=== PATIENT | female | born 1990 | race Caucasian/White ===

== ENCOUNTER 2023-12-17 03:50 | Emergency (ER) | payer OTHER ==
[~2023-12-17] VITALS: Ht 162.6 cm; Wt 81.4 kg
[2023-12-17 03:56] VITALS: BP 113/70; PULSE 76; RESP 18; TEMP 97.8; O2SAT 97
[2023-12-17] MEDS ORDERED: ALUMINUM HYD/MAG/SIMETHICONE 30 ML UDC ONE ×2 (04:34→04:42)
[2023-12-17] MEDS ORDERED: DICYCLOMINE HCL LIQUID 10 MG/5 ML UDC ONE (04:35)
[2023-12-17] MEDS: DICYCLOMINE HCL LIQUID 20 MG, ALUMINUM HYD/MAG/SIMETHICONE 30 ML, LIDOCAINE VISCOUS 2% ... PO ONE (04:45)
[2023-12-17 05:41] LABS: ALBUMIN 3.6 g/dL (3.4-5.0); ANION GAP 11.3 (8-16); CARBON DIOXIDE 27.3 mmol/L (21-32); CREATININE 0.8 mg/dL (0.6-1.3); POTASSIUM 3.6 mmol/L (3.5-5.1); TOTAL BILIRUBIN 0.4 mg/dL (0.0-1.0); TOTAL PROTEIN, SERUM 7.6 g/dL (6.4-8.2)
[2023-12-17] MEDS ORDERED: MAG-27 PO (05:49)
[2023-12-17 05:55] VITALS: BP 113/70; PULSE 76; RESP 18; TEMP 97.8; O2SAT 97
== END 2023-12-17 05:55 | disposition home or self-care (01) ==
LOC: MED 03:50
DX: R10.13 Epigastric pain (principal); Z79.899 Other long term (current) drug therapy
CPT/HCPCS: 36415; 80053; 81025; 83690; 99284